=== PATIENT | female | born 1945 | race Caucasian/White ===

== ENCOUNTER 2022-01-05 20:01 | Inpatient (IN) | payer MEDICARE ==
[~2022-01-05] VITALS: Ht 162.6 cm; Wt 50.3 kg
[2022-01-05] MEDS ORDERED: IV NS 0.9% 1,000 ML BAG IV ONE ×2 (20:30→22:30)
[2022-01-05 20:34] LABS: BASOPHILS % (AUTO) 0.1 % (0.0-2.0); EOSINOPHILS % (AUTO) 0.1 % (0.0-6.0); HEMATOCRIT 26 % (33-45); HEMOGLOBIN 8.5 g/dL (11.5-14.8); LYMPHOCYTES # (AUTO) 0.7 K/uL (0.8-4.8); LYMPHOCYTES % (AUTO) 8.1 % (20.0-44.0); MEAN CORPUSCULAR HGB CONC 33 g/dl (31.0-36.0); MEAN CORPUSCULAR VOLUME 88 fL (82-100); MONOCYTES # (AUTO) 0.7 K/uL (0.1-1.30); NEUTROPHILS # (AUTO) 6.7 K/uL (1.8-8.9); NEUTROPHILS % (AUTO) 82.7 % (43.0-81.0); PLATELET COUNT (AUTO) 378 K/uL (150-450); WHITE BLOOD COUNT (AUTO) 8.1 K/uL (4.3-11.0)
--- NOTE | 2022-01-05 20:37 | NUR ---
YOVANY FROM [facility] TO ER BED 13. AAOX4. NOT IN RESP DISTRESS. AMBUALTORY. BROUGHT IN FOR ABDOMINAL PAIN X TODAY ON HER RIGHT SIDE. PT DENIES N/V/D. WAS AT THE BEDSIDE FOR EVAL. ORDERS RECEIVED.
--- NOTE | 2022-01-05 20:44 | NUR ---
RAC #20G S/L; PATENT AND INTACT. BLOOD COLLECTED AND SENT TO LAB
[2022-01-05 20:54] LABS: CALCIUM, SERUM 8.3 mg/dL (8.5-10.1); CREATININE 0.6 mg/dL (0.6-1.3)
--- NOTE | 2022-01-05 20:59 | NUR ---
[facility]
--- NOTE | 2022-01-05 21:02 | NUR ---
Rebekah brady in ED - 01/05/22 at 2104 by JERRY PT RETURNED TO ER BED [address] VIA [facility]
[2022-01-05 21:15] LABS: ALBUMIN 2.5 g/dL (3.4-5.0); BILIRUBIN,DIRECT 0.1 mg/dL (0.0-0.2); BILIRUBIN,TOTAL 0.3 mg/dL (0.2-1.0); TOTAL PROTEIN, SERUM 5.8 g/dL (6.4-8.2)
--- NOTE | 2022-01-05 21:29 | NUR ---
URINE COLLECTED AND SENT TO LAB
[2022-01-05 21:37] LABS: BILIRUBIN,URINE NEGATIVE (NEGATIVE); COLOR,URINE YELLOW (YELLOW); LEUKOCYTE ESTERASE ,URINE NEGATIVE (NEGATIVE); NITRITE, URINE NEGATIVE (NEGATIVE); PROTEIN,URINE 30 mg/dl (NEGATIVE); UGLUCOSE NEGATIVE (NEGATIVE); UROBILINOGEN,URINE 0.2 EU/dL (0.2)
[2022-01-05 21:47] LABS: BACTERIA,URINE Few /HPF (None Seen); RBC,URINE TOO NUMEROUS TO COUN /HPF (0-2); SQUAMOUS EPITHELIAL CELL,UR Few /HPF (None Seen); WBC,URINE 0-2 /HPF (0-3)
--- NOTE | 2022-01-05 22:04 | NUR ---
FOLLOWED UP WITH [facility] REGARDING IMAGING RESULT
--- NOTE | 2022-01-05 22:06 | NUR ---
RADIOLOGIST ON THE PHONE WITH DR. AVRGAS
--- NOTE | 2022-01-05 22:09 | NUR ---
DR. KIRK ON THE PHONE WITH DR. VARGAS
[2022-01-05] MEDS ORDERED: PIPERACILLIN /TAZOBACTAM 3.375 G VIAL IV ONE (22:13)
--- NOTE | 2022-01-05 22:15 | NUR ---
COVID ANTIGEN SWAB COLLECTED AND SENT TO LAB
--- NOTE | 2022-01-05 22:19 | NUR ---
MUSHROOM CUTTER AT PT'S BEDSIDE
[2022-01-05] MEDS ORDERED: ONDANSETRON HCL/PF 4 MG/2 ML VIAL ONE (22:21)
[2022-01-05] MEDS ORDERED: HYDROMORPHONE 1 MG/1 ML DISP.SYRIN ONE (22:21)
[2022-01-05] MEDS ORDERED: PANTOPRAZOLE 40 MG VIAL IV SCH (22:30)
[2022-01-05] MEDS ORDERED: MORPHINE SULFATE INJ 2 MG/ML DISP.SYRIN IV PRN (22:30)
[2022-01-05] MEDS ORDERED: ONDANSETRON HCL/PF 4 MG/2 ML VIAL IVP PRN (22:30)
[2022-01-05] MEDS ORDERED: ACETAMINOPHEN 650 MG/SUPP.RECT RC PRN (22:30)
[2022-01-05] MEDS ORDERED: ONDANSETRON HCL/PF 4 MG/2 ML VIAL IVP ONE (22:30)
[2022-01-05] MEDS ORDERED: HYDROMORPHONE INJ 2 MG/ML DISP.SYRIN IV ONE (22:30)
[2022-01-05] MEDS ORDERED: PIPERACILLIN /TAZOBACTAM 3.375 G in IV D5W 50 ML IV ONE (22:30)
[2022-01-05] MEDS ORDERED: IV NS 0.9% 1,000 ML IV PRN (22:30)
--- NOTE | 2022-01-05 22:41 | NUR ---
PT'S SON DARLIN DUNHAM UPDATED REGARDING PT
--- NOTE | 2022-01-05 23:02 | NUR ---
ROOM 107 TYE
--- NOTE | 2022-01-05 23:02 | NUR ---
VERBAL ORDERS FROM DR. KIRK FOR NGT PLACEMENT INSERTED 16FR NGT TO R NARE 60CM. AUSCULTATION AND ASPIRATION PLACEMENT CONFIRMED. BUBBLING HEARD AND DARK BROWN GI CONTENT NOTED. AWAITING XRAY PLACEMENT
--- NOTE | 2022-01-05 23:10 | NUR ---
PT SIGNED CONSENT FORM FOR BLOOD TRANSFUSION, ANESTHESIA, AND COVID ACKNOWLEDGEMENT . VERBALIZED UNDERSTANDING OF RISKS VS BENEFITS. PT VERBALLY AGREED AND GAVE CONSENT FOR SURGERY.
--- NOTE | 2022-01-05 23:10 | NUR ---
REPORT GIVEN TO TYE RN FOR CAROL
--- NOTE | 2022-01-05 23:42 | NUR ---
CALLED MARA SAEED [phone] TO UPDATE ABOUT PT'S SURGERY. NO PICKUP & LEFT VOICE MESSAGE. INFORMED PT.
[2022-01-05 23:45] VITALS: BP 125/50
--- NOTE | 2022-01-05 23:45 | NUR ---
TYE RN NOTES A 76 Y/O FEMALE A/O X3-4 RECEIVED FROM ER VIA STRECHER ABLE TO MAKE NEEDS KNOWN NKDA ,FULL CODE CAME FROM [facility] WITH C/O OF ABDOMINAL PAIN , V/S STABLE AFEBRILE ON TELE MONITOR SR 76 .NO SOB NO DISTRESS NOTED WITH ADMITING DX ABDOMINAL PAIN FOR LAPAROSCOPY POSS LAPAROTOMY D/T PERFORATED VISCUS . PREPARED PTS FOR SURGERY , SKIN CHECKED DONE NOTED WITH SCAB ON RIGHT LEG.WILL CONTINUE TO MONITOR PTS
[2022-01-05] MEDS ORDERED: FENTANYL PF 250MCG/5ML AMPUL ONE (23:47)
[2022-01-05] MEDS ORDERED: HYDROMORPHONE INJ 2 MG/ML DISP.SYRIN ONE (23:47)
[2022-01-05] MEDS ORDERED: MIDAZOLAM HCL 2 MG/2ML VIAL ONE (23:48)
[2022-01-05] MEDS ORDERED: ROCURONIUM BROMIDE 50 MG/5 ML ONE (23:48)
[2022-01-05] MEDS ORDERED: FAMOTIDINE/PF INJ 20 MG/2 ML VIAL IV ONE (23:48)
--- NOTE | 2022-01-05 23:54 | NUR ---
PT TRANSFERRED TO TYE 107 VIA ACLS PROTOCOL. ALL BELONGINGS WITH PT. PT TOLERATING TRANSFER WELL. VSS. DR. KIRK AT PT'S BEDSIDE
[2022-01-06] VITALS: BP 158/80
--- NOTE | 2022-01-06 | NUR ---
TYE RN NOTES SEEN AND EXAMINED BY DR KIRK AT BEDSIDE EXPLAINED SURGERY PROCEDURE .PTS VERBALIZED UNDERSTANDING , CONSENTED FOR SURGERY. AWAITING FOR SURGERY STAFF TO PICK HER UP.
--- NOTE | 2022-01-06 00:15 | NUR ---
TYE RN NOTES PTS WAS PICKED UP BY SURGERY STAFF CONSENT FOR SURGERY ,ANESTHESIA AND BLOOD TRANSFUSION WAS SIGNED BY PTS .
[2022-01-06] MEDS ORDERED: ANESTHESIA TRAY IN PYXIS 1 EA TRAY MC ONE (00:17)
[2022-01-06] MEDS ORDERED: BUPIVACAINE MPF 0.5% W/EPI INJ 30 ML VIAL ONE (00:17)
[2022-01-06] MEDS ORDERED: LIDOCAINE 1% INJ 50 ML MDV IJ ONE (00:18)
[2022-01-06] MEDS ORDERED: AMLO-212 PO (00:41)
[2022-01-06] MEDS ORDERED: LEVE500T20 PO (00:41)
[2022-01-06] MEDS ORDERED: ESCI5TAB PO (00:41)
[2022-01-06] MEDS ORDERED: MIRT7.5T10 PO (00:41)
[2022-01-06] MEDS ORDERED: LEVO50TA8 PO (00:41)
[2022-01-06] MEDS ORDERED: METHYLENE BLUE 10 ML VIAL ONE (01:46)
[2022-01-06] MEDS ORDERED: SEVOFLURANE 250 ML BOTTLE IH ONE (01:47)
[2022-01-06] MEDS ORDERED: PIPERACILLIN /TAZOBACTAM 3.375 G in IV D5W 50 ML IV ONE (04:00)
--- NOTE | 2022-01-06 04:00 | NUR ---
dat rn notes zosyn dose for 4am not given d/t pts still in operating room
[2022-01-06] MEDS ORDERED: BACITRACIN/POLYMYXIN B 15 GM TUBE TP ONE (04:59)
--- NOTE | 2022-01-06 06:15 | NUR ---
TYE RN CLOSING NOTES RECEIVED PT S/P LAPAROTOMY ; PEFORATED VISCUS UNDETERMINED SITE BY DR. KIRK. RECEIVED PT A/OX1-2 AT THIS TIME, ON 3L OF VIA NC, WITH 02 SAT @99%. WITH NGT ON R NARE CONNECTED TO LIS. ABN SURGICAL SITE DRESSING NOTED TO BE SECURED, DRY AND INTACT NO SIGNS OF BLEEDING. WITH XUAN PRAT DRAIN @ L ABDOMINAL REGION DRAINING SMALL AMOUNT OF SEROUSAGENOUS OUTPUT AT THIS TIME. WITH F/C INTACT DRAINING 200CC YELLOW COLORED OUTPUT. WITH IV ACCESS ON R AC#20 , PATENT AND INTACT WITH RUNNING IVF OF LR @150CC/HR, INFUSING WELL. WITH SCD APPLIED. WILL ENDORSE TO AM SHIFT FOR CAROL. Addendum: 01/06/22 at 0720 by FLORENCIA GIRALDO RN XUAN LEANNE IS ON THE RIGHT SIDE OF ABDOMEN
[2022-01-06 07:12] LABS: BASOPHILS % (AUTO) 0.2 % (0.0-2.0); EOSINOPHILS % (AUTO) 0.1 % (0.0-6.0); HEMATOCRIT 30 % (33-45); HEMOGLOBIN 9.5 g/dL (11.5-14.8); LYMPHOCYTES # (AUTO) 0.5 K/uL (0.8-4.8); MEAN CORPUSCULAR HGB CONC 32 g/dl (31.0-36.0); MEAN CORPUSCULAR VOLUME 93 fL (82-100); MONOCYTES # (AUTO) 0.8 K/uL (0.1-1.30); MONOCYTES % (AUTO) 7.2 % (2.0-12.0); NEUTROPHILS # (AUTO) 9.3 K/uL (1.8-8.9); NEUTROPHILS % (AUTO) 87.5 % (43.0-81.0); PLATELET COUNT (AUTO) 391 K/uL (150-450); RED BLOOD CELL COUNT(AUTO) 3.19 MIL/uL (4.0-5.2); WHITE BLOOD COUNT (AUTO) 10.6 K/uL (4.3-11.0)
--- NOTE | 2022-01-06 07:28 | NUR ---
TYE RN NOTES PATIENT IN BED , S/P LAPAROTOMY ; PERFORATED VISCUS UNDETERMINED SITE BY DR. KIRK. RECEIVED PT A/OX1-2 AT THIS TIME, ON 3L OF VIA NC, WITH 02 SAT @99%. WITH NGT ON R NARE CONNECTED TO LIS. NO DRAINAGE NOTED AT THIS TIME ABD SURGICAL SITE DRESSING NOTED TO BE SECURED, DRY AND INTACT NO SIGNS OF BLEEDING. WITH XUAN PRAT DRAIN @ L ABDOMINAL REGION DRAINING SMALL AMOUNT OF SEROUSAGENOUS OUTPUT AT THIS TIME. WITH F/C INTACT DRAINING YELLOW COLORED OUTPUT. WITH IV ACCESS ON R AC#20 , PATENT AND INTACT WITH RUNNING IVF OF LR @150CC/HR, INFUSING WELL. BED IN LOWEST AND LOCKED POSITION , ON TELE MONITOR HR 80 SEEN BY KIMBERLEY CHAVES DNP, NOT IN DISTRESS, WILL MONITOR Addendum: 01/06/22 at 0958 by JOELLE CALIXTO RN urine color green color kimberley posey notified Addendum: 01/06/22 at 1646 by JOELLE CALIXTO RN [id number] patient in bed, noted on rt side face with bluish discoloration and rt side hair with blue color
[2022-01-06 07:44] LABS: CALCIUM, SERUM 7.9 mg/dL (8.5-10.1); CARBON DIOXIDE 22 mmol/L (21-32); CHLORIDE 107 mmol/L (98-107); CREATININE 0.7 mg/dL (0.6-1.3); GLUCOSE 120 mg/dL (74-106); MAGNESIUM 2.5 mg/dL (1.8-2.4); PHOSPHORUS 2.8 mg/dL (2.5-4.9); SODIUM SERUM 139 mmol/L (136-145); UREA NITROGEN, BLOOD 20 mg/dL (7-18)
[2022-01-06 08:00] VITALS: BP 112/61
[2022-01-06] MEDS: LEVETIRACETAM (500MG) 500 MG in IV NS 0.9% 100 ML IV SCH ×2 (08:48→20:13)
[2022-01-06] MEDS: PANTOPRAZOLE 40 MG VIAL IV SCH ×2 (08:48→20:13)
[2022-01-06 08:59] LABS: CHOLESTEROL 110 mg/dL (<200); HDL CHOLESTEROL 60 mg/dL (40-60); LDL 32 mg/dL (0-99); TRIGLYCERIDES 65 mg/dL (30-150)
[2022-01-06] MEDS: AMLODIPINE BESYLATE 5 MG TABLET PO SCH (09:00)
[2022-01-06] MEDS: ESCITALOPRAM OXALATE (10 MG) 10 MG TABLET PO SCH (09:00)
[2022-01-06] MEDS: LEVOTHYROXINE SODIUM 50 MCG TABLET PO SCH (09:00)
[2022-01-06] MEDS: PIPERACILLIN /TAZOBACTAM 3.375 G in IV D5W 100 ML IV SCH ×3 (09:40→23:12)
--- NOTE | 2022-01-06 11:11 | NUR ---
telephonic rn note spoke with dr segovia notified that urine and drainage from suction greenish color stated that from medication , will cont to monitor Addendum: 01/06/22 at 1142 by JOELLE CALIXTO RN spoke with dr juliette an npo exept Meds order carried out
[2022-01-06] MEDS: HYDROMORPHONE 1 MG/1 ML DISP.SYRIN IV PRN ×3 (11:56→20:14)
[2022-01-06 12:00] VITALS: BP 117/74
--- NOTE | 2022-01-06 12:04 | NUR ---
TYE RN NOTE C\O PAIN IN ABDOMEN DILAUDID 1 MG IVP GIVEN PEHU8AL BP117/74 SATURATION 98% WILL MONITOR
--- NOTE | 2022-01-06 15:10 | NUR ---
HAND BOX FOLDER NOTE CONT ON NG TUBE TO LOWER INTERMITTED SUCTION ,VERY SCANT AMOUNT OF DRAINAGE NOTED AT THIS TIME, TOVAR CATH TO GRAVITY WITH LIGHT GREEN DAVID COLOR NOTED DR KIRK AWARE OF IT , GIVEN ICE CHIP SAS ORDERED MOUTH CARE PROVIDED
[2022-01-06] MEDS: IV LR 1000 ML 1,000 ML IV PRN ×2 (15:36→23:10)
[2022-01-06 16:00] VITALS: BP 156/85
--- NOTE | 2022-01-06 18:25 | NUR ---
TYE RN NOTE PATIENT IN BED AWAKE ALERT , WITH NG TUBE TO LOWER INTERMITTED SUCTION ,NO DRAINAGE NOTED AT THIS TIME, WITH TOVAR CATH TO GRAVITY WITH GREEN BLUE COLOR , DR KIRK NOTIFIED ABOUT THIS, ANNY DRAINAGE ON RT SIDE LOWER SIDE OF ABDOMEN IN PLACE WITH SEROSANGUINEOUS DRAINAGE NOTED , DRESSING ON ABDOMEN INTACT ,NO BLEEDING NOTED , ON RT AC HL IVF INFUSING AND LT FA JOSELO 22 IV ATB ADMINISTERING, ICE CHIPS GIVEN TOLERATED, BED IN LOWEST AND LOCKED POSITION, CALL LIGHT WITHIN REACH ,REPOSITION DONE ,
[2022-01-06 20:00] VITALS: BP 150/76
[2022-01-06] MEDS: MIRTAZAPINE 15 MG TABLET PO SCH (21:08)
[2022-01-07] VITALS: BP 156/74
[2022-01-07] MEDS: HYDROMORPHONE 1 MG/1 ML DISP.SYRIN IV PRN ×7 (00:41→22:47)
[2022-01-07 04:00] VITALS: BP 148/78
[2022-01-07] MEDS: IV LR 1000 ML 1,000 ML IV PRN ×2 (05:53→17:49)
[2022-01-07 06:22] LABS: BASOPHILS % (AUTO) 0.2 % (0.0-2.0); EOSINOPHILS % (AUTO) 0.3 % (0.0-6.0); HEMATOCRIT 24 % (33-45); HEMOGLOBIN 7.9 g/dL (11.5-14.8); LYMPHOCYTES # (AUTO) 0.3 K/uL (0.8-4.8); LYMPHOCYTES % (AUTO) 3.7 % (20.0-44.0); MEAN CORPUSCULAR HGB CONC 33 g/dl (31.0-36.0); MEAN CORPUSCULAR VOLUME 90 fL (82-100); MONOCYTES # (AUTO) 0.7 K/uL (0.1-1.30); MONOCYTES % (AUTO) 7.7 % (2.0-12.0); NEUTROPHILS # (AUTO) 7.5 K/uL (1.8-8.9); NEUTROPHILS % (AUTO) 88.1 % (43.0-81.0); PLATELET COUNT (AUTO) 381 K/uL (150-450); RED BLOOD CELL COUNT(AUTO) 2.69 MIL/uL (4.0-5.2); WHITE BLOOD COUNT (AUTO) 8.5 K/uL (4.3-11.0)
--- NOTE | 2022-01-07 06:40 | NUR ---
TYE RN NOTE, PATIENT IN BED, COOL AEROSOL 10L, 40% FIO2, NO SOB/ACUTE DISTRESS, NSR WITH HR 60S MOSTLY DURING THE NIGHT, FREQUENT SUCTIONING FOR RETENTION OF SECRETIONS, O2 >92 MAINTAINED, SHEILA AND NARAYAN MIDLINES IN PLACED BOTH PATENT AND INTACT, TOVAR CATH IN PLACE, DRAINING TO YELLOW URINE, OTHERWISE NO SIGNIFICANT CHANGE IN CONDITION, REPOSITION Q2H PROVIDED, BED LOCKED AND IN LOWEST POSITION, S/R OF BED UP X3, WILL ENDORSE CONTINUITY OF CARE TO ONCOMING NURSE. Addendum: 01/07/22 at 0645 by ALISTAIR SOMMER RN WRONG ENTRY
--- NOTE | 2022-01-07 06:52 | NUR ---
TYE RN NOTE PATIENT IN BED ASLEEP AT THIS TIME, ON 2LPM VIA NC WITH OPTIMAL O2 SAT LEVEL, NO SOB/ACUTE DISTRESS, NSR IN TELE MONITOR WITH HR 70S, WITH NG TUBE TO LOWER INTERMITTED SUCTION ,NO DRAINAGE NOTED DURING THE NIGHT, WITH TOVAR CATH TO GRAVITY WITH GREEN BLUE COLOR , ANNY DRAINAGE ON RT SIDE LOWER SIDE OF ABDOMEN IN PLACE WITH SEROSANGUINEOUS DRAINAGE NOTED 90CC DURING THE NIGHT, DRESSING ON ABDOMEN DRY AND INTACT, NO EPISODES OF BLEEDING NOTED, ON PAIN MANAGEMENT, ON IV FLUIDS LR ORDERED, CONT NPO EXEMPT MEDS, BED LOCKED AND IN LOWEST POSITION, CALL LIGHT WITHIN REACH, WILL ENDORSE CONTINUITY OF CARE TO ONCOMING NURSE.
[2022-01-07 07:13] LABS: CALCIUM, SERUM 8.4 mg/dL (8.5-10.1); CARBON DIOXIDE 25 mmol/L (21-32); CHLORIDE 106 mmol/L (98-107); CREATININE 0.7 mg/dL (0.6-1.3); GLUCOSE 119 mg/dL (74-106); MAGNESIUM 2.6 mg/dL (1.8-2.4); PHOSPHORUS 3.4 mg/dL (2.5-4.9); POTASSIUM 4.5 mmol/L (3.5-5.1); SODIUM SERUM 138 mmol/L (136-145); UREA NITROGEN, BLOOD 17 mg/dL (7-18)
--- NOTE | 2022-01-07 07:37 | NUR ---
RN OPENING `NOTE, PATIENT IN BED, A/0 X2. ON NC 2L NO SOB/ACUTE DISTRESS. IV ACCES SHEILA AND NARAYAN MIDLINES IN PLACED BOTH PATENT AND INTACT, TOVAR CATH IN PLACE, DRAINING GREEN URINE. PATIENT IS NPO EXPECT MEDS STATUS POST PERFORATED VISCUS SURGERY DONE 01/06/22. BED LOCKED AND IN LOWEST POSITION, S/R OF BED UP X2. `
[2022-01-07 08:00] VITALS: BP 148/73
[2022-01-07] MEDS: LEVETIRACETAM (500MG) 500 MG in IV NS 0.9% 100 ML IV SCH ×2 (09:10→20:03)
[2022-01-07] MEDS: AMLODIPINE BESYLATE 5 MG TABLET PO SCH (09:10)
[2022-01-07] MEDS: PANTOPRAZOLE 40 MG VIAL IV SCH ×2 (09:11→20:10)
[2022-01-07] MEDS: LEVOTHYROXINE SODIUM 50 MCG TABLET PO SCH (09:11)
[2022-01-07] MEDS: ESCITALOPRAM OXALATE (10 MG) 10 MG TABLET PO SCH (09:11)
[2022-01-07] MEDS: PIPERACILLIN /TAZOBACTAM 3.375 G in IV D5W 100 ML IV SCH ×3 (10:34→23:49)
[2022-01-07 12:00] VITALS: BP 132/79
--- NOTE | 2022-01-07 13:33 | NUR ---
25mls out Addendum: 01/07/22 at 1333 by SANDRA BARTON RN Amended: Links added.
[2022-01-07 16:00] VITALS: BP 130/61
--- NOTE | 2022-01-07 17:00 | NUR ---
RN NOTE DRAIN OUTPUT 50CC Addendum: 01/07/22 at 1821 by SANDRA BARTON RN Amended: Links added.
[2022-01-07] MEDS: JEVITY 1.2 CAL 1,000 ML BOTTLE NG PRN (17:49)
--- NOTE | 2022-01-07 18:49 | NUR ---
RN CLOSING NOTE PATIENT IN BED A/O X3, ON ROOM AIR NO SOB/ACUTE DISTRESS, NSR IN TELE MONITOR, WITH NG TUBE RUNNING JEVITY AT 20MLS/HR , WITH TOVAR CATH TO GRAVITY WITH LIGHT GREEN COLOR , ANNY DRAINAGE ON RT SIDE LOWER SIDE OF ABDOMEN IN PLACE WITH SEROSANGUINEOUS DRAINAGE NOTED 100CC DURING THE NIGHT, DRESSING ON ABDOMEN DRY AND INTACT, NO EPISODES OF BLEEDING NOTED, ON PAIN MANAGEMENT, ON IV FLUIDS LR ORDERED, CONT NPO EXEMPT MEDS,ICE CHIPS OKAY. BED LOCKED AND IN LOWEST POSITION, CALL LIGHT WITHIN REACH, WILL ENDORSE CONTINUITY OF CARE TO ONCOMING NURSE.
--- NOTE | 2022-01-07 19:30 | NUR ---
RN OPENING NOTE PATIENT IN BED A/O X3, AWAKE AT THIS TIME, ON ROOM AIR WITH 02 90 AT THIS TIME, PLACED BACK 2LPM VIA NC, NO SOB/ACUTE DISTRESS, NSR IN TELE MONITOR WITH HR IN 60S AT THIS TIME, NO MORE LIC, NOW PATIENT RECEIVING FEEDING VIA NG TUBE, JEVITY AT 20MLS/HR, PATIENT TOLERATED WELL, WITH TOVAR CATH TO GRAVITY CONT LIGHT GREEN COLOR , ANNY DRAINAGE ON RT SIDE LOWER SIDE OF ABDOMEN, ANNY IN PLACE, WILL MONITOR OUTPUT, DRESSING INTACT ON ABDOMINAL INCISION, NO BLEEDING NOTED, CONT ON LR IVF ORDERED, CONT NPO EXEMPT MEDS,ICE CHIPS OKAY PER MD, BED LOCKED AND IN LOWEST POSITION, CALL LIGHT WITHIN REACH, WILL CONTINUE TO MONITOR CLOSELY.
[2022-01-07 20:00] VITALS: BP 122/63
[2022-01-07] MEDS: MIRTAZAPINE 15 MG TABLET PO SCH (21:23)
[2022-01-08] VITALS: BP 122/67
[2022-01-08 04:00] VITALS: BP 131/69
[2022-01-08] MEDS: PIPERACILLIN /TAZOBACTAM 3.375 G in IV D5W 100 ML IV SCH ×2 (06:09→14:07)
--- NOTE | 2022-01-08 06:39 | NUR ---
RN CLOSING NOTE, PATIENT IN BED ASLEEP AT THIS TIME, ON 2LPM VIA NC WITH OPTIMAL O2 SAT LEVEL, NO SOB/ACUTE DISTRESS, NSR IN TELE MONITOR WITH HR 60-70S, ON JEVITY 1.2 AT 20CC/HR VIA NGT, TOLERATED WELL, WITH TOVAR CATH TO GRAVITY WITH GREEN BLUE COLOR , ANNY DRAINAGE ON RT SIDE LOWER SIDE OF ABDOMEN IN PLACE WITH SEROSANGUINEOUS DRAINAGE NOTED 100CC DURING THE NIGHT, DRESSING ON ABDOMEN REINFORCED, NO EPISODES OF BLEEDING NOTED, ON PAIN MANAGEMENT, ON IV FLUIDS LR ORDERED, AND ANTIBIOTICS, CONT NPO EXEMPT MEDS, BED LOCKED AND IN LOWEST POSITION, CALL LIGHT WITHIN REACH, WILL ENDORSE CONTINUITY OF CARE TO ONCOMING NURSE.
[2022-01-08 07:08] LABS: CALCIUM, SERUM 7.9 mg/dL (8.5-10.1); CARBON DIOXIDE 28 mmol/L (21-32); CHLORIDE 105 mmol/L (98-107); CREATININE 0.6 mg/dL (0.6-1.3); GLUCOSE 104 mg/dL (74-106); MAGNESIUM 2.2 mg/dL (1.8-2.4); PHOSPHORUS 2.7 mg/dL (2.5-4.9); POTASSIUM 3.9 mmol/L (3.5-5.1); SODIUM SERUM 138 mmol/L (136-145); UREA NITROGEN, BLOOD 12 mg/dL (7-18)
--- NOTE | 2022-01-08 07:41 | NUR ---
TYE RN NOTE PATIENT IN BED,ON RA, NO SOB NOTED AT THIS TIME, WITH TOVAR CATH TO GRAVITY WITH LIGHT GREENISH COLOR , ABDOMINAL DRESSING INN PLACE, NO BLEEDING NOTED , ANNY DRAIN ON RT SIDE WITH 20 ML SEROSANGUINEOUS DRAINAGE NOTED,ON IVF ORDERED RT UPPER ARM MID LINE, ON TALE MONITOR SR 69. BED IN LOWEST AND LOCKED POSITION, REPOSITION DONE , KEEP HOB ELEVATED, N G TUBE IN PLACE ON FEEDING TOLERATED WELL WILL MONITOR CLOSELY
[2022-01-08 08:29] LABS: BASOPHILS % (AUTO) 0.3 % (0.0-2.0); EOSINOPHILS % (AUTO) 2.3 % (0.0-6.0); HEMATOCRIT 25 % (33-45); HEMOGLOBIN 7.7 g/dL (11.5-14.8); LYMPHOCYTES # (AUTO) 0.5 K/uL (0.8-4.8); MEAN CORPUSCULAR HGB CONC 31 g/dl (31.0-36.0); MEAN CORPUSCULAR VOLUME 92 fL (82-100); MONOCYTES # (AUTO) 0.5 K/uL (0.1-1.30); MONOCYTES % (AUTO) 6.5 % (2.0-12.0); NEUTROPHILS # (AUTO) 6.4 K/uL (1.8-8.9); NEUTROPHILS % (AUTO) 84.9 % (43.0-81.0); PLATELET COUNT (AUTO) 360 K/uL (150-450); RED BLOOD CELL COUNT(AUTO) 2.68 MIL/uL (4.0-5.2); WHITE BLOOD COUNT (AUTO) 7.6 K/uL (4.3-11.0)
[2022-01-08] MEDS: PANTOPRAZOLE 40 MG VIAL IV SCH (08:30)
[2022-01-08] MEDS: ESCITALOPRAM OXALATE (10 MG) 10 MG TABLET PO SCH (08:30)
--- NOTE | 2022-01-08 08:30 | NUR ---
dat rnnote noted lt fa hl iv site with slightly swelling and painful to touch and new one on lt ac jessie 22 inserted with good blood return noted
[2022-01-08] MEDS: LEVOTHYROXINE SODIUM 50 MCG TABLET PO SCH (08:31)
[2022-01-08] MEDS: AMLODIPINE BESYLATE 5 MG TABLET PO SCH (08:31)
[2022-01-08] MEDS: HYDROMORPHONE 1 MG/1 ML DISP.SYRIN IV PRN ×4 (08:32→20:45)
[2022-01-08] MEDS: LEVETIRACETAM (500MG) 500 MG in IV NS 0.9% 100 ML IV SCH (08:33)
--- NOTE | 2022-01-08 09:30 | NUR ---
telecom assistant note noted noted lt ac hl is swollen and bluish decoloration noted, removed hl and keep elevated arm ice pack applied ,will monitor
[2022-01-08 10:08] VITALS: BP 124/66
--- NOTE | 2022-01-08 10:12 | NUR ---
telephone coin box collector note c\o abdominal pain Dilaudid 1 mg ivp given as ordered bp 124/66 saturation 93%
--- NOTE | 2022-01-08 10:15 | NUR ---
DIMENSIONAL ENGINEER NOTE PT AT BED SIDE ,ABLE TO MAKE FEW SEPS USING A WALKER
--- NOTE | 2022-01-08 10:34 | NUR ---
receptionist/telephone operator note new iv hl inserted jessie 24 on rt hand , will monitor
--- NOTE | 2022-01-08 11:26 | NUR ---
telecine operator note dr apodaca at bedside updated patient condition, aware that hg 7.7 no new order given at this time
--- NOTE | 2022-01-08 11:37 | NUR ---
telemetry tech note Dilaudid 1 mg ivp given bp 135/78 saturation 95%
[2022-01-08 12:28] VITALS: BP 136/56
[2022-01-08] MEDS: IV LR 1000 ML 1,000 ML IV PRN (13:35)
--- NOTE | 2022-01-08 13:59 | NUR ---
telephone claims representative note called to dr segovia surgeon ok to give ice chips ,order carried out
--- NOTE | 2022-01-08 14:54 | NUR ---
television audio engineer note Dilaudid 1 mg ivp given as ordered ,bp 122/66 saturation 97% ,ice chips given as ordered
[2022-01-08 16:00] VITALS: BP 124/66
--- NOTE | 2022-01-08 17:03 | NUR ---
tele rnnote c\o itchiness called dr frankel with order Benadryl 25 mg via ng tube q6 hour prn ,order carried out
--- NOTE | 2022-01-08 17:54 | NUR ---
television installer note dr segovia at bedside updated patient condition with cont n g tube feeding as ordered also noted kirill drain site noted leaking dr segovia notified stated to change dressing , done as informed that urine color light green stated its ok for now,hg 7.7 no new order at this time
[2022-01-08] MEDS: diphenhydrAMINE HCL ELIX 25 MG/10 ML UDC NG PRN (18:11)
--- NOTE | 2022-01-08 18:22 | NUR ---
regional telecommunications specialist note Benadryl 25 mg via n g tube given as ordered , dr segovia aware of it ,mouth care provided, ice chips given, all needs attended, cont ng tube feeding as ordered, call light within rech,will cont to monitor
--- NOTE | 2022-01-08 19:46 | NUR ---
SALES OUTFITTER OPENING NOTE PATIENT IN BED AWAKE, A/O X3, ON 02 VIA NC AT 2L TOLERATING WELL. ON TELE MONITORING CURRENTLY READING AT 6O'S AT THIS TIME, WITH FEEDING VIA NG TUBE, JEVITY AT 20MLS/HR, PATIENT TOLERATED WELL, WITH TOVAR CATH TO GRAVITY CONT LIGHT GREEN COLOR , ANNY DRAINAGE ON RT SIDE LOWER SIDE OF ABDOMEN, ANNY IN PLACE, WILL MONITOR OUTPUT, DRESSING INTACT ON ABDOMINAL INCISION, NO BLEEDING NOTED, CONT ON LR IVF ORDERED, CONT NPO EXEMPT MEDS,ICE CHIPS OKAY PER , BED LOCKED AND IN LOWEST POSITION, CALL LIGHT WITHIN REACH, WILL CONTINUE TO MONITOR CLOSELY. Addendum: 01/08/22 at 1951 by CARLOS WILSON RN SALES OUTFITTER OPENING NOTE PATIENT IN BED AWAKE, A/O X3, ON 02 VIA NC AT 2L TOLERATING WELL. ON TELE MONITORING CURRENTLY READING AT 6O'S AT THIS TIME, WITH FEEDING VIA NG TUBE, JEVITY AT 20MLS/HR, PATIENT TOLERATED WELL, WITH TOVAR CATH TO GRAVITY WITH LIGHT YELLOW COLORED URINE , ANNY DRAINAGE ON RT SIDE LOWER SIDE OF ABDOMEN, ANNY IN PLACE, WILL MONITOR OUTPUT, DRESSING INTACT ON ABDOMINAL INCISION, NO BLEEDING NOTED, WITH IV ACCESS ON SHEILA MIDLINE RUNNING LR AT 75 CC/HR, CONT NPO EXEMPT MEDS,ICE CHIPS OKAY PER , BED LOCKED AND IN LOWEST POSITION, CALL LIGHT WITHIN REACH, WILL CONTINUE TO MONITOR CLOSELY. Addendum: 01/09/22 at 0458 by CARLOS WILSON RN WITH IV ACCESS ON SHEILA MIDLINE, INTACT AND PATENT, RUNNING LR AT 150 ML/HR, INFUSING WELL.
[2022-01-08 20:00] VITALS: BP 124/45
[2022-01-08] MEDS: PANTOPRAZOLE 40 MG/PACK PACK GT SCH (20:44)
[2022-01-08] MEDS: LEVETIRACETAM SOL (5 ML) 100 MG/ML UDC GT SCH (20:44)
[2022-01-08] MEDS: ZOSYN IVPB 3.375 G in IV D5W 50ml IV SCH (21:21)
[2022-01-08] MEDS: MIRTAZAPINE 15 MG TABLET PO SCH (21:22)
[2022-01-09] VITALS (9 sets, daily range): BP systolic 115–139; BP diastolic 51–87
--- NOTE | 2022-01-09 00:11 | NUR ---
RN NOTE PT COMPLAINTS OF ITCHINESS SPECIFICALLY ON THE L FOREARM, REDNESS NOTED FROM SCRATCHING, BENADRYL 25MG GIVEN PRN ORDER. WILL CONT TO MONITOR THROUGHOUT THE SHIFT.
[2022-01-09] MEDS: diphenhydrAMINE HCL ELIX 25 MG/10 ML UDC NG PRN (00:21)
[2022-01-09] MEDS: HYDROMORPHONE 1 MG/1 ML DISP.SYRIN IV PRN ×3 (04:14→20:04)
--- NOTE | 2022-01-09 04:14 | NUR ---
RN NOTE PT COMPLAINTS OF BURNING PAIN ON THE ANTERIOR ABDOMEN DUE TO THE INCISION DONE DURING LAPAROSCOPY, PAIN RATED AT 8/10. DILAUDID PRN GIVEN ORDERED, WILL CONT TO MONITOR.
[2022-01-09] MEDS: IV LR 1000 ML 1,000 ML IV PRN ×3 (04:30→23:53)
[2022-01-09] MEDS: ZOSYN IVPB 3.375 G in IV D5W 50ml IV SCH ×3 (05:08→21:20)
--- NOTE | 2022-01-09 06:39 | NUR ---
PLANT HEALTH CARE TECHNICIAN CLOSING NOTE PATIENT IN BED SLEEPING BUT EASILY AROUSABLE TO TOUCH AND VOICE, A/O X3, ON 02 VIA NC AT 2L TOLERATING WELL. ABLE TO MAKE NEEDS KNOWN, ON TELE MONITORING CURRENTLY READING SR AT 72 BPM WITH FEEDING VIA NG TUBE, JEVITY AT 20MLS/HR, PATIENT TOLERATED WELL, TOVAR CATH TO GRAVITY WITH LIGHT YELLOW COLORED URINE , ANNY DRAINAGE ON RT SIDE LOWER SIDE OF ABDOMEN, WITH 40 CC OF DRAINAGE ON MY SHIFT, IV ACCESS ON SHEILA MIDLINE RUNNING LR AT 150 CC/HR INFUSING WELL, CONT NPO EXEMPT MEDS, ICE CHIPS OKAY PER , ALL DUE MEDS GIVEN, KEPT DRY AND CLEAN, BED LOCKED AND IN LOWEST POSITION, CALL LIGHT WITHIN REACH, WILL ENDORSE TO AM SHIFT NURSE.
--- NOTE | 2022-01-09 07:18 | NUR ---
HEAD CORRECTION OFFICER OPENING NOTE PATIENT IN BED ASLEEP, ON 02 VIA NC AT 2L, TOLERATING WELL. ON TELE MONITORING CURRENTLY READING 6O'S AT THIS TIME, WITH NG TUBE, JEVITY AT 20MLS/HR, PATIENT TOLERATED WELL, WITH TOVAR CATH TO GRAVITY WITH LIGHT YELLOW COLORED URINE , ANNY DRAINAGE ON RT SIDE LOWER SIDE OF ABDOMEN, ANNY IN PLACE, WILL MONITOR OUTPUT, DRESSING INTACT ON ABDOMINAL INCISION, NO BLEEDING NOTED, WITH IV ACCESS ON SHEILA MIDLINE RUNNING LR AT 150 ML/HR, CONT NPO EXEMPT MEDS,ICE CHIPS OKAY PER , BED LOCKED AND IN LOWEST POSITION, CALL LIGHT WITHIN REACH.
[2022-01-09 07:34] LABS: CREATININE 0.6 mg/dL (0.6-1.3)
--- NOTE | 2022-01-09 07:45 | NUR ---
RN NOTE RECEIVED CRITICAL LAB FOR HGB 6.9. YESTERDAY HBG WAS 7.7 REQUESTED A REDRAW. PENDING RESULTS
[2022-01-09 08:11] LABS: BASOPHILS % (AUTO) 0.3 % (0.0-2.0); HEMATOCRIT 21 % (33-45); LYMPHOCYTES # (AUTO) 0.5 K/uL (0.8-4.8); MEAN CORPUSCULAR HGB CONC 32 g/dl (31.0-36.0); MEAN CORPUSCULAR VOLUME 90 fL (82-100); MONOCYTES # (AUTO) 0.4 K/uL (0.1-1.30); MONOCYTES % (AUTO) 7.7 % (2.0-12.0); PLATELET COUNT (AUTO) 336 K/uL (150-450); RED BLOOD CELL COUNT(AUTO) 2.36 MIL/uL (4.0-5.2); WHITE BLOOD COUNT (AUTO) 5.1 K/uL (4.3-11.0)
[2022-01-09 08:14] LABS: HEMOGLOBIN 6.7 g/dL (11.5-14.8)
[2022-01-09] MEDS: LEVOTHYROXINE SODIUM 50 MCG TABLET GT SCH (08:34)
[2022-01-09] MEDS: ESCITALOPRAM OXALATE (10 MG) 10 MG TABLET GT SCH (08:36)
[2022-01-09] MEDS: AMLODIPINE BESYLATE 5 MG TABLET GT SCH (08:39)
[2022-01-09] MEDS: PANTOPRAZOLE 40 MG/PACK PACK GT SCH ×2 (08:40→21:19)
[2022-01-09] MEDS: LEVETIRACETAM SOL (5 ML) 100 MG/ML UDC GT SCH ×2 (08:42→21:19)
[2022-01-09 11:07] LABS: CALCIUM, SERUM 8.5 mg/dL (8.5-10.1); MAGNESIUM 2.2 mg/dL (1.8-2.4)
[2022-01-09 15:54] LABS: BAND % (MANUAL) 1 % (0.0-5.0); EOSINOPHILS % (MANUAL) 1 % (0-4); LYMPHOCYTES % (MANUAL) 10 % (16-48); MONOCYTES % (MANUAL) 6 % (0-11.0); NEUTROPHILS % (MANUAL) 82 (42-76)
--- NOTE | 2022-01-09 17:40 | NUR ---
RN NOTE PATIENTS PRBC TRANSFUSION FINISHED NO REACTION PATIENT A/OX4.
--- NOTE | 2022-01-09 18:51 | NUR ---
RN CLOSING NOTE PATIENT IN BED A/O X3, ON ROOM AIR NO SOB/ACUTE DISTRESS, BT OF 1 UNIT PRBC COMPLETED WITHOUT ANY S/S OF COMPLICATIONS. NSR IN TELE MONITOR, WITH NG TUBE RUNNING JEVITY AT 20MLS/HR , WITH TOVAR CATH TO GRAVITY WITH YELLOW URINE, ANNY DRAINAGE ON RT SIDE LOWER SIDE OF ABDOMEN IN PLACE WITH 100CC SEROSANGUINEOUS DRAINAGE NOTED, DRESSING ON ABDOMEN DRY AND INTACT, NO EPISODES OF BLEEDING NOTED, ON PAIN MANAGEMENT, ON IV FLUIDS LR ORDERED, CONT NPO EXEMPT ICE CHIPS OKAY. BED LOCKED AND IN LOWEST POSITION, CALL LIGHT WITHIN REACH, WILL ENDORSE CONTINUITY OF CARE TO ONCOMING NURSE.
--- NOTE | 2022-01-09 19:30 | NUR ---
RACKING MACHINE OPERATOR OPENING NOTE RECEIVED PATIENT IN BED A/O X3, ON O2 VIA NC AT 2L. S/P BT OF 1 UNIT OF RBC. NO SIGNS OF ACUTE DISTRESS NOTED AT THIS TIME. NSR IN TELE MONITOR SATING AT 100%. PT IS NPO WITH ONLY ICE CHIPS ALLOWED. NGT RUNNING JEVITY AT 20MLS/HR , WITH TOVAR CATH DRAINING TO GRAVITY WITH YELLOW URINE, ANNY DRAINAGE NOTED ON LOWER RT SIDE OF ABDOMEN WITH SEROSANGUINEOUS DRAINAGE NOTED, DRESSING ON ABDOMEN DRY AND INTACT. BED LOCKED AND IN LOWEST POSITION, CALL LIGHT WITHIN REACH, WILL CONTINUE TO MONITOR PT FOR ANY CHANGES.
[2022-01-09] MEDS: MIRTAZAPINE 15 MG TABLET PO SCH (21:19)
[2022-01-10] VITALS: BP 141/62
[2022-01-10 04:00] VITALS: BP 127/64
[2022-01-10] MEDS: ZOSYN IVPB 3.375 G in IV D5W 50ml IV SCH ×3 (05:02→21:41)
[2022-01-10 07:22] LABS: BASOPHILS % (AUTO) 0.2 % (0.0-2.0); EOSINOPHILS % (AUTO) 2.3 % (0.0-6.0); HEMATOCRIT 26 % (33-45); HEMOGLOBIN 8.4 g/dL (11.5-14.8); LYMPHOCYTES # (AUTO) 0.5 K/uL (0.8-4.8); LYMPHOCYTES % (AUTO) 9.3 % (20.0-44.0); MEAN CORPUSCULAR HGB CONC 32 g/dl (31.0-36.0); MEAN CORPUSCULAR VOLUME 88 fL (82-100); MONOCYTES # (AUTO) 0.4 K/uL (0.1-1.30); MONOCYTES % (AUTO) 8.4 % (2.0-12.0); NEUTROPHILS # (AUTO) 4.2 K/uL (1.8-8.9); NEUTROPHILS % (AUTO) 79.8 % (43.0-81.0); PLATELET COUNT (AUTO) 305 K/uL (150-450); RED BLOOD CELL COUNT(AUTO) 2.96 MIL/uL (4.0-5.2); WHITE BLOOD COUNT (AUTO) 5.3 K/uL (4.3-11.0)
--- NOTE | 2022-01-10 07:30 | NUR ---
TARPER AM NOTE PATIENT IN BED A/O X3, ON ROOM AIR, O2 SAT 97%, NO SOB/ACUTE DISTRESS, RESPIRATION UNLABORED, SINUS BROOKE HR 58 ON MONITOR. NO PAIN AT THIS TIME. RFA G18 IV ACCESS WITH LR AT 150 ML/HR INFUSING WELL, SITE CLEAR. NG TUBE TO RIGHT NARE IN PLACE WITH JEVITY AT 20MLS/HR RUNNING , NPO FOR NOW BUT MAY HAVE ICE CHIPS. WITH TOVAR CATH TO GRAVITY WITH YELLOW URINE, ANNY DRAINAGE ON RT SIDE LOWER SIDE OF ABDOMEN IN PLACE WITH MIN SEROSANGUINEOUS DRAINAGE NOTED, DRESSING ON ABDOMEN DRY AND INTACT, NO EPISODES OF BLEEDING NOTED, DISCUSSED POC, VERBALIZED UNDERSTANDING. BED LOCKED AND IN LOWEST POSITION, CALL LIGHT WITHIN REACH, WILL CONTINUE TO MONITOR.
--- NOTE | 2022-01-10 07:47 | NUR ---
SHIPPER RECEIVER CLOSING NOTE PATIENT IN BED A/O X3, ON O2 VIA NC AT 2L. S/P BT OF 1 UNIT OF RBC. NO SIGNS OF ACUTE DISTRESS NOTED. NSR IN TELE MONITOR SATING AT 100%. PT IS NPO WITH ONLY ICE CHIPS ALLOWED. NGT RUNNING JEVITY AT 20MLS/HR , WITH TOVAR CATH DRAINING TO GRAVITY WITH YELLOW URINE, ANNY DRAINAGE NOTED ON LOWER RT SIDE OF ABDOMEN WITH 100 CC OF SEROSANGUINEOUS DRAINAGE NOTED, DRESSING ON ABDOMEN DRY AND INTACT. ALL DUE MEDS GIVEN. ALL SAFETY MEASURES FOLLOWED. BED LOCKED AND IN LOWEST POSITION, CALL LIGHT WITHIN REACH, WILL ENDORSE TO AM SHIFT NURSE FOR CAROL.
[2022-01-10 08:00] VITALS: BP 121/55
[2022-01-10 08:10] LABS: ALANINE AMINOTRANSFERASE 15 U/L (12-78); ALBUMIN 1.6 g/dL (3.4-5.0); ALKALINE PHOSPHATASE 70 U/L (46-116); ASPARTATE AMINOTRANSFERASE 11 U/L (15-37); BILIRUBIN,TOTAL 0.3 mg/dL (0.2-1.0); CHLORIDE 105 mmol/L (98-107); CREATININE 0.6 mg/dL (0.6-1.3); GLUCOSE 105 mg/dL (74-106); PHOSPHORUS 3.2 mg/dL (2.5-4.9); POTASSIUM 3.6 mmol/L (3.5-5.1); SODIUM SERUM 140 mmol/L (136-145); UREA NITROGEN, BLOOD 7 mg/dL (7-18)
[2022-01-10 08:58] LABS: CALCIUM, SERUM 8.3 mg/dL (8.5-10.1); CARBON DIOXIDE 26 mmol/L (21-32)
[2022-01-10] MEDS: LEVETIRACETAM SOL (5 ML) 100 MG/ML UDC GT SCH (09:11)
[2022-01-10] MEDS: LEVOTHYROXINE SODIUM 50 MCG TABLET GT SCH (09:12)
[2022-01-10] MEDS: ESCITALOPRAM OXALATE (10 MG) 10 MG TABLET GT SCH (09:12)
--- NOTE | 2022-01-10 09:13 | NUR ---
RN NOTES PER DR. KIRK, MAY START PATIENT ON FULL LIQUID DIET. KEEP NGT FOR NOW.
[2022-01-10] MEDS: PANTOPRAZOLE 40 MG/PACK PACK GT SCH ×2 (09:14→20:04)
[2022-01-10] MEDS: AMLODIPINE BESYLATE 5 MG TABLET GT SCH (09:14)
[2022-01-10] MEDS: JEVITY 1.2 CAL 1,000 ML BOTTLE NG PRN (09:18)
[2022-01-10] MEDS: IV LR 1000 ML 1,000 ML IV PRN ×2 (09:19→17:19)
--- NOTE | 2022-01-10 09:30 | NUR ---
RN NOTES DUE MEDS GIVEN
[2022-01-10] MEDS: HYDROMORPHONE 1 MG/1 ML DISP.SYRIN IV PRN ×2 (09:45→15:38)
--- NOTE | 2022-01-10 09:52 | NUR ---
RN NOTES SPOKE WITH DR. KIRK. INFORMED HIM THAT NGT IS CLOGGED CHECKED EARLIER WITH CHARGE NURSE SOON. PER DR. KIRK, REMOVED NG TUBE AND START LIQUIDS.
[2022-01-10 12:00] VITALS: BP 102/54
--- NOTE | 2022-01-10 14:58 | NUR ---
RN NOTES DR. KIRK, NOTIFIED, PT C/O 03/27 BURNING PAIN SENSATION ON ABDOMEN. ALSO ASKING FOR ENSURE. NO NEW ORDERS
--- NOTE | 2022-01-10 15:23 | NUR ---
RN NOTES DR. BUCK, NOTIFIED PT C/O 03/27 BURNING PAIN SENSATION ON ABDOMEN. ALSO ASKING FOR ENSURE. NO NEW ORDERS
[2022-01-10 16:00] VITALS: BP 113/53
--- NOTE | 2022-01-10 18:38 | NUR ---
NIGHT COURT MAGISTRATE CLOSING NOTE PATIENT IN BED A/O X3, NSR IN TELE MONITOR SATING AT 99%. PT IS NOW ON FULL LIQUID DIET. NGT STILL IN PLACE WITH JEVITY AT 20MLS/HR , WITH TOVAR CATH DRAINING TO GRAVITY WITH YELLOW URINE, ANNY DRAINAGE NOTED ON LOWER RT SIDE OF ABDOMEN WITH 50 CC OF SEROSANGUINEOUS DRAINAGE NOTED, DRESSING ON ABDOMEN DRY AND INTACT. ALL DUE MEDS GIVEN. ALL SAFETY MEASURES FOLLOWED. BED LOCKED AND IN LOWEST POSITION, CALL LIGHT WITHIN REACH, WILL ENDORSE TO PM SHIFT NURSE FOR CAROL.
--- NOTE | 2022-01-10 19:20 | NUR ---
C WPF DEVELOPER OPENING NOTE PATIENT IN BED AWAKE, A/O X3, ON 02 VIA NC AT 3L TOLERATING WELL. ON TELE MONITORING, WITH TOVAR CATH TO GRAVITY WITH LIGHT YELLOW COLORED URINE, ON CLEAR LIQUID DIET, ANNY DRAINAGE ON RT SIDE LOWER SIDE OF ABDOMEN, WILL MONITOR OUTPUT, DRESSING INTACT ON ABDOMINAL INCISION, NO BLEEDING NOTED, WITH IV ACCESS ON SHEILA MIDLINE, INTACT AND PATENT, RUNNING LR AT 150 ML/HR, INFUSING WELL, BED LOCKED AND IN LOWEST POSITION, CALL LIGHT WITHIN REACH, WILL CONTINUE TO MONITOR CLOSELY.
[2022-01-10 20:00] VITALS: BP 110/58
--- NOTE | 2022-01-10 20:00 | NUR ---
RN NOTE PT COMPLAINTS OF ABD PAIN RATED 8/10 ON PAIN SCALE, MORPHINE GIVEN PRN ORDER. WILL CONT TO MONITOR
[2022-01-10] MEDS: MORPHINE SULFATE INJ 2 MG/ML DISP.SYRIN IV PRN (20:04)
[2022-01-10] MEDS: LEVETIRACETAM (250 MG) 250 MG TABLET PO SCH (20:04)
[2022-01-10] MEDS: MIRTAZAPINE 15 MG TABLET PO SCH (21:41)
[2022-01-10] MEDS: diphenhydrAMINE HCL ELIX 25 MG/10 ML UDC NG PRN (23:23)
[2022-01-11] VITALS: BP 133/67
[2022-01-11] MEDS: IV LR 1000 ML 1,000 ML IV PRN (01:55)
--- NOTE | 2022-01-11 03:50 | NUR ---
RN NOTE PT COMPLAINTS OF PAIN ON THE ANTERIOR ABD, 8/10 ON PAIN SCALE, BLOOD PRESSURE CHECKED WNL, MORPHINE GIVEN PRN ORDER, WILL CONT TO MONITOR
[2022-01-11] MEDS: MORPHINE SULFATE INJ 2 MG/ML DISP.SYRIN IV PRN ×3 (03:53→14:56)
[2022-01-11 04:00] VITALS: BP 127/65
--- NOTE | 2022-01-11 06:41 | NUR ---
RN NOTE MIDLINE ORDERED PER PANEL MACHINE TENDER SETH STOVALL, PT IS HARDSTICK, MULTIPLE MEDICATION THROUGH IV ROUTE. WILL CONT TO MONITOR
--- NOTE | 2022-01-11 06:44 | NUR ---
SALON LEADER CLOSING NOTE PATIENT IN BED SLEEPING BUT EASILY AROUSABLE, A/O X3, ON 02 VIA NC AT 3L TOLERATING WELL. ABLE TO MAKE NEEDS KNOWN, ON TELE MONITORING CURRENTLY READING SINUS BROOKE AT 50-60'S, WITH TOVAR CATH TO GRAVITY WITH LIGHT YELLOW COLORED URINE, ON CLEAR LIQUID DIET, ANNY DRAINAGE ON RT SIDE LOWER SIDE OF ABDOMEN, OUTPUT OF 100 CC ON MY SHIFT, WITH IV ACCESS ON SHEILA MIDLINE, INTACT AND PATENT, RUNNING LR AT 150 ML/HR, INFUSING WELL, KEPT DRY AND CLEAN, ALL DUE MEDS GIVEN, BED LOCKED AND IN LOWEST POSITION, CALL LIGHT WITHIN REACH, WILL ENDORSE TO AM SHIFT NURSE.
[2022-01-11] MEDS: ZOSYN IVPB 3.375 G in IV D5W 50ml IV SCH ×2 (06:51→14:08)
[2022-01-11 08:00] VITALS: BP 124/59
--- NOTE | 2022-01-11 08:00 | NUR ---
telecommunications professional note patient in bed , all needs attended alert oriented , on tele monitor sr h r 65, with kirill drain 100 ml yellow clear drainage noted, on ra nosob noted bed in lowest and locked position, with Aguiar cath to gravity with yellow color will cont to monitor
[2022-01-11] MEDS: LEVETIRACETAM (250 MG) 250 MG TABLET PO SCH (08:35)
[2022-01-11] MEDS: AMLODIPINE BESYLATE 5 MG TABLET GT SCH (08:35)
[2022-01-11] MEDS: PANTOPRAZOLE 40 MG/PACK PACK GT SCH (08:35)
[2022-01-11] MEDS: ESCITALOPRAM OXALATE (10 MG) 10 MG TABLET GT SCH (08:35)
[2022-01-11] MEDS: LEVOTHYROXINE SODIUM 50 MCG TABLET GT SCH (08:37)
--- NOTE | 2022-01-11 10:15 | NUR ---
TELE.RN NOTE PATIENT COMPLAINED OF ABDOMEN PAIN 8/10, DULL CONTUNUES PAIN . SN ADMINISTERED MORPHINE 2 MG IV PUSH PER MD FLUSHING WITH 10CC OF THE NS. ORDER PATIENT TOLERATED INFUSION WELL PRIOR TO INFUSE THE MEDICATION SN CHECKED THE VS : TEMP 98.2; HR 77,RESP 16 , o2 99 %. BP 133/115 MMHG
--- NOTE | 2022-01-11 10:59 | NUR ---
television repairman note resting comfortably after morphine given, all needs attended
[2022-01-11 11:55] VITALS: BP 112/54
[2022-01-11 12:05] VITALS: BP 115/60
--- NOTE | 2022-01-11 14:00 | NUR ---
CAN CUTTER NOTE PER DR NAVA OK TO DISCHARGE TO SNF IF OK WITH DR KIRK
--- NOTE | 2022-01-11 14:16 | NUR ---
WELDER FIRST CLASS NOTE PER DR KIRK OK TO DISCHARGE TO SNF WITH ANNY DRAINAGE AWARE THAT ANNY DRAIN AT SITE IS LEAKING CALLED TO SNF REPORT GIVEN TO HORACIO DINERO
--- NOTE | 2022-01-11 14:32 | NUR ---
telemarketer NOTES COVID RAPID TEST DONE AT 14:20
--- NOTE | 2022-01-11 15:10 | NUR ---
ANOTHER DOSE OF THE MORPHINE SULFATE WAS ADMINISTERED AT 15:05 DUE TO PATIENT DEVELOPED SEVERE PAIN OF THE ABDOMEN 03/27. PATIENT TOLERATED INFUSION WELL
--- NOTE | 2022-01-11 15:23 | NUR ---
CLINICAL PROJECT COORDINATOR NOTE: MIDLINE OF THE SHEILA WAS REMOVED USING ASEPTIC TECHNIQUE . PATIENT TOLERATED PROCEDURE WELL
--- NOTE | 2022-01-11 15:26 | NUR ---
METAL TILE SETTER NOTE PATIENT ASSESSED S/P MORPHINE INFUSION , PATIENTSTSTED THAT PAIN WENT DOWN TO 1/10, RESP 18 2 SAT 98%
--- NOTE | 2022-01-11 16:25 | NUR ---
rn note right upper arm mid line discontinued., no bleeding . skin intact .
--- NOTE | 2022-01-11 16:30 | NUR ---
chiseler head note: Ambulance came yo pick the patient up [facility] , discharge instructions given, bodycheck done, VS stable , left via gurney in stable condition
[2022-01-11 16:42] VITALS: BP 131/63
--- NOTE | 2022-01-11 16:46 | NUR ---
television maintenance worker note called ramses matt notified [facility] [place] ,belonging checked by ria hernandez
--- NOTE | 2022-01-11 16:46 | NUR ---
CHIEF HUMAN RESOURCES OFFICER NOTE AMBULANCE ARRIVED , REPORT GIVEN ,MID LINE ON LT UPPER IN PLACE AND FLUSHED WELL, TELE REMOVED ,LEFT HOS[ITAL WITH STABLE CONDITION
== END 2022-01-11 18:17 | DRG 329 ==
LOC: ER 20:10 → TELE-TD 23:11 → TELE1 01-08 09:43
PROVIDERS: ADMIT Nurse Practitioner Acute Care
PROC: 0DBA0ZZ Excision of Jejunum, Open Approach (ICD-10-PCS; 2022-01-05)
PROC: 05HB33Z Insertion of Infusion Device into Right Basilic Vein, Percutaneous Approach (ICD-10-PCS; 2022-01-07)
PROC: 30233N1 Transfusion of Nonautologous Red Blood Cells into Peripheral Vein, Percutaneous Approach (ICD-10-PCS; principal; 2022-01-09)
PROC: 05HA33Z Insertion of Infusion Device into Left Brachial Vein, Percutaneous Approach (ICD-10-PCS; 2022-01-11)
DX: K95.89 Other complications of other bariatric procedure (principal); K65.9 Peritonitis, unspecified; K57.20 Diverticulitis of large intestine with perforation and abscess without bleeding; E44.0 Moderate protein-calorie malnutrition; Z68.1 Body mass index [BMI] 19.9 or less, adult; Y84.8 Other medical procedures as the cause of abnormal reaction of the patient, or of later complication, without mention of misadventure at the time of the procedure; Y92.89 Other specified places as the place of occurrence of the external cause; Z20.822 Contact with and (suspected) exposure to COVID-19; N20.0 Calculus of kidney; D64.9 Anemia, unspecified; E03.9 Hypothyroidism, unspecified; E88.09 Other disorders of plasma-protein metabolism, not elsewhere classified; F29 Unspecified psychosis not due to a substance or known physiological condition; G40.909 Epilepsy, unspecified, not intractable, without status epilepticus; I10 Essential (primary) hypertension; Z87.891 Personal history of nicotine dependence; Z90.49 Acquired absence of other specified parts of digestive tract; Z98.84 Bariatric surgery status
CPT/HCPCS: 36410; 36415; 71045-TC; 74018; 80048-TC; 80053-TC; 80061-TC; 80076-TC; 81001; 83605-TC; 83690-TC; 83735-TC; 84100-TC; 85025-TC; 85730-TC; 86850-TC; 86900-TC; 87040-TC; 87081-TC; 97110-TC; 97116-TC; 97530-TC; A6253; C9113; C9803; G0378; J0690; J1170; J1953; J2250; J2270; J2405; J2543; J2704; J2765; J3010; J3490; J7030; J7040; J7050; J7060; J7120; P9016; Q0163; Q9968